=== PATIENT | female | born 1940 ===

== ENCOUNTER 2019-10-03 07:37 | Day surgery (SDC) | payer MEDICARE, MEDICAID, SELFPAY ==
[2019-09-30 18:31] VITALS: BMI 47.4
[2019-10-03] VITALS (20 sets, daily range): BP systolic 130–188; BP diastolic 44–91; PULSE 63–91; RESP 14–20; TEMP 36.1–36.4; O2SAT 92–99
--- NOTE | 2019-10-03 | SCC_ITS ---
Procedure Done: Intramedullary nailing right humerus 58.2 seconds of fluoroscopic guidance, for a cumulative dose of 5.21 mGy, was provided to Dr. Toscano by the radiology department. C-arm images of the RIGHT shoulder were saved for the patient's permanent record. [facility]
--- NOTE | 2019-10-03 08:19 | ANES.PREANES ---
Pre-Anesthetic Assessment Pre-Anesthetic Assessment: Height/Weight: Height 1.56 m Weight 115.666 kg Preop Diagnosis: right proximal humerus fx Proposed Procedure: Operation Date: 10/03/19 09:15 Proposed Procedures p ORIF Proximal Humerus(Right) - Ravinder Toscano MD Social: Comment: 1 ppd x 30 years, quit 30 years ago Home 02 x 2 years Pulmonary: Pulmonary: COPD and Sleep apnea Comments: Home O2 CV/HEM: CV/HEM: Murmur Comments: 02/06 cath + severe Aortic stenosis, distal LM & ostial LAD lesions, mod-severe pulmonary HTN, mild MR, EF 60% s/p AVR 08/03/19 without post op arrest : : UTI Comments: urinary incontinence, hx of dysuria, chronic cystitis GI: Comments: hx of diverticulosis Metabolic: Metabolic: DM, Morbid obesity and Thyroid Comments: rx'd x 20years, normally 150-200, thyroid x 20 years without change Musc/skel: Musc/skel: Fibromyalgia and Lower Back Pain Neuropsych: Neuropsych: Depression Anesthetic Plan: ASA status: III Anesthesia: General Data Anesthesia Cardiac Studies: No Data to Display
[2019-10-03] MEDS: sodium chloride 0.9% 1,000 ML 30 ML IV (08:48)
[2019-10-03 08:49] LABS: Glucose Point of Care 200 mg/dL (70-110)
--- NOTE | 2019-10-03 09:04 | ECG_ITS ---
Measurements Intervals [place] Rate: 71 P: 69 TN: 199 QRS: 16 QRSD: 102 T: 61 QT: 392 QTc: 427 SINUS RHYTHM Compared to ECG 04/13/2019 13:55:20 T-wave abnormality no longer present Electronically Signed On 10-03-2019 19:27:02 UX RESEARCHER by Kieran Castanon M.D. [email or web address]
--- NOTE | 2019-10-03 09:38 | PM.HPUD ---
H&P update H&P Update: DATE OF SURGERY/PROCEDURE: 10/03/19 DATE H&P PERFORMED: 09/13/19 H&P UPDATE INFORMATION: H&P completed within last 30 days and No changes to prior documentation CHANGES TO PREVIOUS DOCUMENTATION: The patient has spoken to doing her oncologist. She is clear for stabilization of her humerus. I have suggested a intramedullary implant. I discussed risk with surgery including bleeding and infection. Discussed unlikely blood vessel or nerve injury. I discussed the complications and dealing with pathologic fracture and the risk for further injury and possible further procedures. She understands all these and agrees to proceed PREOP DIAGNOSIS: Pathologic fracture right humerus PRIMARY INDICATION FOR PROCEDURE: Stabilization pathologic fracture right humerus PLANNED PROCEDURE: Operation Date: 10/03/19 09:15 Proposed Procedures p ORIF Proximal Humerus(Right) - Ravinder Toscano MD Full H&P Medications/Allergies: Current Medications: Current Medications Generic Name Dose Route Start Last Admin Trade Name Freq PRN Reason Stop Dose Admin Sodium Chloride 1,000 mls @ 30 ml s/hr 10/03/19 07:15 10/03/19 08:48 Sodium Chloride 0.9% IV 10/04/19 07:14 30 mls/hr .Q24H BRY Administration
--- NOTE | 2019-10-03 09:50 | ANES.PROC ---
Anesthesia Procedures Procedure/Date: 10/03/19 Nerve Block ^: Nerve Block 1: Main Anesthesia: general anesthesia Time Out Performed: Yes Consent: requested by attending/covering physician, from patient, risks and benefits reviewed, patient agrees to proceed and other Nerve block location: interscalene Anesthesia monitors applied: pulse oximetry and oxygen Nerve block position: supine Amount of anesthesia used (mL): 30 Nerve Stimulator Used?: Yes Interscalene/Femoral BLK: 2 stimuplex 22 g needle used for position and inplane approach Injection: neg aspiration of heme and paresthesia +/- Patient Tolerated Procedure: well and no complications Additional Comments: R&B's of right innerscaleneblock disc'd with Dr. Toscano & patient. Verbal and written consents obtained. US utilized to identify right innerscalene space and nerves. Lido 2% with epi & Rop 0.5% in 1:3 ratio in 5cc increments for 30cc total volume
[2019-10-03] MEDS: fentaNYL 50 mcg/mL INJ 2mL 100 MCG IVP (10:00)
[2019-10-03] MEDS: midazolam 1 mg/mL INJ 5 ML 5 MG IVP (10:02)
[2019-10-03] MEDS: clindamycin 600 MG/50 ML PREMIX 100 MG IV (10:05)
--- NOTE | 2019-10-03 11:43 | SUR.PHASEI ---
1140 PATIENT TO PACU AT THIS TIME FROM OR. RR EVEN AND UNLABORED. PLACED ON SIMPLE MASK AT 8L, SPO2 99%. DRESSING TO RIGHT SHOULDER, CDI, SLING IN PLACE. CAP REFILL INTACT. PULSE PRESENT.
--- NOTE | 2019-10-03 11:43 | PM.OP ---
Operative Report Date of procedure: 10/03/19 Preop Diagnosis: Pathologic fracture right proximal humerus Post-op diagnosis: same Post-op Findings: Same Procedure Done: Intramedullary nailing right humerus Implants: [place] proximal humeral nail right 8 x 220 mm; proximal locking screws measuring 30, 40, and 45 mm Pathology: none sent Surgeon: Ravinder Toscano Anesthesia: general and ISB Estimated blood loss (mL): 100 Complications: None Findings: The patient had a previously described pathologic fracture of her right proximal humerus at the metaphyseal diaphyseal junction. Condition: stable Disposition: PACU Brief History: The patient is a 79-year-old female with chronic right humerus pain. She describes a fall several months ago and markedly increased pain when she simply lifted her arm away from her body. She has been previously cared for by a Dr. Dee in [facility] for metastatic cancer. He cleared her for surgery and she underwent stabilization of her right proximal humerus for pain control Procedure: The patient was taken to the operating room after she was given an interscalene block. She was given 600 mg of clindamycin. He was positioned in the beachchair position with her right arm exposed. She is prepped and draped in the usual fashion. A timeout was performed. A 5 cm long incision was made beginning over the acromion extending distally and laterally. Dissection was carried down to the deltoid musculature which was split providing access to the rotator cuff. The rotator cuff was divided longitudinally. A guidepin was then passed just medial to the insertion of the greater tuberosity down the shaft. Sequential reaming was accomplished up to 9.5 mm. The 8 x 220 mm nail was then placed and passed with minimal difficulty. It was fixed proximally with the 3 proximal locking screws and the and calf. Wound was irrigated with saline. The rotator cuff was closed with 0 Vicryl. The deltoid fascia was closed with 0 Vicryl. The subcutaneous tissues were closed with 2-0 Vicryl. The skin was closed with skin milagros. The patient was placed in a sling, extubated, and taken to recovery in stable condition.
[2019-10-03] MEDS: fentaNYL 50 mcg/mL INJ 2mL IVP ×2 (11:52→11:58)
--- NOTE | 2019-10-03 12:05 | SUR.PHASEI ---
PATIENT CONTINUES TO RATE PAIN 10/10. RESTING COMFORTABLY IN BED. PATIENT NOTED TO BE RESTING WITH EYES CLOSED. RIGHT ARM PLACED ON PILLOWS FOR COMFORT.
[2019-10-03] MEDS: morphine 4 mg/mL SDV 1 mL 2 MG IVP ×3 (12:10→12:30)
[2019-10-03] MEDS: ketorolac 30 mg/mL INJ IVP (12:34)
--- NOTE | 2019-10-03 12:52 | SUR.PHASEI ---
1248 PATIENT TO OPS VIA GURNEY. A/OX3. RR EVEN AND UNLABORED. PWD. DRESSING TO RIGHT SHOULDER CDI, SLING IN PLACE. PULSE PRESENT. CAP REFILL INTACT. PATIENT RATES PAIN /10. FACES 4/10. POSITIONED ON PILLOWS FOR COMFORT.
--- NOTE | 2019-10-04 | XR_ITS ---
WS: [id number] INTRAOPERATIVE TECHNIQUE: 5 Spot fluoroscopic images for intraoperative purposes. FLUOROSCOPY TIME: 58.2 seconds CLINICAL INFORMATION: ORIF Right shoulder COMPARISON: None. FINDINGS: Intraoperative changes intramedullary roosevelt and screw fixation right humerus. Hardware appears in good position. Normal alignment. XR/XR shoulder RT min 2V* [id number] IMPRESSION: Images obtained for intraoperative purposes.
== END 2019-10-03 14:30 | disposition home or self-care (01) ==
PROVIDERS: Family Provider Family Medicine; PCP Family Medicine; Visit Provider Orthopaedic Surgery
PROC: (CPT 23615; principal; 2019-10-03 09:15)
DX: S42.201A Unspecified fracture of upper end of right humerus, initial encounter for closed fracture (principal); W19.XXXA Unspecified fall, initial encounter; J44.9 Chronic obstructive pulmonary disease, unspecified; M79.7 Fibromyalgia; G47.30 Sleep apnea, unspecified; E66.01 Morbid (severe) obesity due to excess calories; E11.9 Type 2 diabetes mellitus without complications; Z87.891 Personal history of nicotine dependence; Z79.84 Long term (current) use of oral hypoglycemic drugs; Z99.81 Dependence on supplemental oxygen
CPT/HCPCS: 24516; 12345; 36416; 73030; 76000; 82962; 93005; 96365; 96374; 96375; C1713; J1580; J1885; J2001; J2250; J2270; J2405; J2704; J2710; J2795; J3010; J3490; J7030

== ENCOUNTER → 2019-10-17 14:20 | Outpatient (BNVA) | payer MEDICARE, MEDICAID, SELFPAY | PROVIDERS: Family Provider Family Medicine; PCP Family Medicine; Visit Provider Orthopaedic Surgery | DX: Z48.89 Encounter for other specified surgical aftercare (principal) | CPT/HCPCS: 73060 ==

== ENCOUNTER 2020-01-28 12:09 | Emergency (ER) | payer MEDICARE, MEDICAID, SELFPAY ==
[2020-01-28] VITALS (7 sets, daily range): BP systolic 130–157; BP diastolic 61–74; PULSE 80–83; RESP 14–20; TEMP 37.1; O2SAT 97–99; BMI 43.4
--- NOTE | 2020-01-28 12:23 | W.ED.GENADLT ---
HPI - General Adult General: Chief complaint: General Medical Stated complaint: PAIN ALL OVER HX OF LUNG CA Time Seen by Provider: 01/28/20 12:14 History of Present Illness: HPI narrative: 79-year-old female with a history of cancer who is on hospice presents emergency room with complaints of pain all over. Reviewing her chart done with patient she has liver cancer she is in and see his oncologist in [place] earlier this year she had a pathologic fracture of her humerus. She comes in today complaining of generalized weakness and hurting all over she has had some falls earlier this year she does states she falls frequently. She denies recent fever sweats chills denies urinary tract symptoms denies respiratory symptoms no vomiting or diarrhea but she has been nauseous she is complaining of some right shoulder pain that is the only pain that she specifies. She does have a friend that helps her she lives at home the friend stops and daily to assist. She was recently [facility] surgery for a medullary roosevelt. Associated symptoms: Reports malaise; Deny chest pain, dyspnea, nausea, rash or vomiting Review of Systems Const: Reports: fatigue and malaise; Denies: fever, chills, body aches or change in appetite ENMT: Denies: throat pain, ear pain, nasal discharge or nasal congestion Card: Denies: chest pain, edema, shortness of breath on exertion or shortness of breath when lying down Resp: Denies: shortness of breath, productive cough or non-productive cough GI: Denies: abdominal pain, nausea, vomiting, vomiting blood, coffee grounds in vomit, diarrhea, constipation, bloating, blood in stool or black tarry stool : Denies: flank pain, difficulty urinating, painful urination, urinary frequency or urinary urgency Musc: Reports: extremity pain (Right shoulder) Skin/Breast: Denies: rash or itching PFSH ED PFSH: Medical History (Updated 01/28/20 @ 15:23 by Azar Garay DO) Hepatic cancer History of COPD Hx of congestive heart failure Hx of diabetes mellitus Hx of primary hypertension Hx of sleep apnea Hx of thyroid disease Proximal humerus fracture Surgical History (Updated 01/28/20 @ 14:28 by Azar Garay DO) Hx of section Hx of cholecystectomy Social History Smoking and tobacco status: former smoker Alcohol intake: never Physical Exam Const: COMMON NORMALS: no apparent distress GENERAL APPEARANCE: cooperative and comfortable ORIENTATION/CONSCIOUSNESS: Yes awake, Yes oriented to person, Yes oriented to place and Yes oriented to time HENMT: COMMON NORMALS: normocephalic, head/scalp atraumatic, hearing grossly normal bilaterally, external ears normal, EAC's normal, TM's normal bilaterally, nasal mucous membranes and turbinates normal, moist oral mucous membranes and oropharynx normal HEAD & SCALP: normocephalic and atraumatic NOSE: nasal mucous membranes and turbinates normal EXTERNAL EAR: Yes external ears normal EXTERNAL AUDITORY CANAL: EAC's normal TYMPANIC MEMBRANE: TM's normal bilaterally Eye: COMMON NORMALS: PERRL, EOMs intact bilaterally, conjunctivae normal and no scleral icterus CONJUNCTIVA: Yes conjunctivae normal PUPIL: Yes PERRL Neck/C-Spine: COMMON NORMALS: full ROM, no lymphadenopathy, supple and no JVD Lymph: LYMPHATIC: no lymphadenopathy noted and no lymphedema noted Resp: COMMON NORMALS: normal respiratory effort, no retractions, no use of accessory muscles and clear to auscultation bilaterally AUSCULTATION: clear to auscultation bilaterally Cardio: COMMON NORMALS: no JVD, regular rate, regular rhythm and no murmurs RATE: regular rate RHYTHM: regular rhythm GI: COMMON NORMALS: soft to palpation and no hepatosplenomegaly AUSCULTATION: Yes normoactive bowel sounds PALPATION: Yes soft, No tender, No guarding and Yes no hepatosplenomegaly Extremity: COMMON NORMALS: normal to inspection, normal capillary refill, no clubbing, cyanosis or edema, no calf tenderness and no pedal edema Neuro: SENSORIUM/ORIENTATION: Yes oriented to person, Yes oriented to place and Yes oriented to time Skin: COMMON NORMALS: no rashes or lesions noted GENERAL SKIN EXAM: no rashes or lesions noted Course Vital Signs: Vital signs: Vital Signs Temperature 98.8 F 01/28/20 12:15 Pulse Rate 83 01/28/20 17:39 Respiratory Rate 20 H 01/28/20 17:39 Blood Pressure 157/74 01/28/20 17:39 Pulse Oximetry 98 01/28/20 17:39 MDM - General Adult MDM Narrative: Medical decision making narrative: Patient has known hepatic cancer with metastasis the only finding today is acute is cystitis we will go ahead and discharge home and treat her for the cystitis with p.o. meds Lab Data: Labs: Lab Results 01/28/20 01/28/20 01/28/20 Range/Units 12:49 12:49 12:49 WBC 14.0 H (4.0-10.0) 10^3/ uL RBC 4.06 L (4.1-5.3) 10^6/u L Hgb 10.9 L (11.5-15.3) g/dL Hct 36.2 L (37.0-47.0) % MCV 89.2 (81-99) fL MCH 26.8 L (28.0-34.0) pg MCHC 30.1 (30.0-36.0) g/dL RDW 21.2 H (12.1-15.1) % Plt Count 185 (130-400) 10^3/c mm MPV 9.7 (7.4-10.4) fL Neut % (Auto) 78.6 % Lymph % (Auto) 7.5 % [place] % (Auto) 11.4 % Eos % (Auto) 0.9 % Baso % (Auto) 0.2 % Neut # (Auto) 11.0 H (1.8-7.7) 10^3/u L Lymph # (Auto) 1.1 (0.8-4.8) 10^3/u L [place] # (Auto) 1.6 H (0.2-0.9) 10^3/u L Eos # (Auto) 0.1 (0.0-0.8) 10^3/u L Baso # (Auto) 0.0 (0.0-0.1) 10^3/u L Nucleated RBC % (a uto) 0.7 % Nucleated RBCs # 0.1 /100WBC PT 17.10 H (10.5-13.3) SECO NDS INR 1.35 H (0.8-1.2) APTT 37.3 H (23.9-36.7) SECO NDS Sodium 134 L (136-145) mmol/L Potassium 4.0 (3.5-5.1) mmol/L Chloride 95 L (98-107) mmol/L Carbon Dioxide 30 H (22-29) mmol/L Anion Gap 13.0 (5-19) BUN 14 (8-23) mg/dL Creatinine 0.7 (0.5-0.9) mg/dL Glucose 139 H (65-115) mg/dL Calculated Osmolal ity 276 L (285-295) mOsm/k g Calcium 8.4 L (8.5-10.5) mg/dL Total Bilirubin 2.8 H (0.15-1.2) mg/dL AST 307 H (0-32) U/L ALT 67 H (0-33) U/L Alkaline Phosphata se 233 H (35-105) IU/L Ammonia (11-51) umol/L Total Protein 6.3 L (6.6-8.7) g/dL Albumin 2.6 L (3.5-5.2) g/dL Globulin 3.7 (1.3-4.6) g/dL Urine Color (Yellow) Urine Appearance (CLEAR) Urine pH (5-7) Ur Specific Gravit y (1.005-1.030) Urine Protein (Negative) Urine Glucose (UA) (Normal) Urine Ketones (Negative) Urine Blood (Negative) Urine Nitrate (Negative) Urine Bilirubin (NEGATIVE) Urine Urobilinogen (Negative) mg/dL Ur Leukocyte Bria ase (Negative) Urine RBC (0-2) /hpf Urine WBC (0-5) /hpf Ur Squamous Epith Cells (0-5) Urine Bacteria (NONE) 01/28/20 01/28/20 Range/Units 12:49 13:07 WBC (4.0-10.0) 10^3/ uL RBC (4.1-5.3) 10^6/u L Hgb (11.5-15.3) g/dL Hct (37.0-47.0) % MCV (81-99) fL MCH (28.0-34.0) pg MCHC (30.0-36.0) g/dL RDW (12.1-15.1) % Plt Count (130-400) 10^3/c mm MPV (7.4-10.4) fL Neut % (Auto) % Lymph % (Auto) % [place] % (Auto) % Eos % (Auto) % Baso % (Auto) % Neut # (Auto) (1.8-7.7) 10^3/u L Lymph # (Auto) (0.8-4.8) 10^3/u L [place] # (Auto) (0.2-0.9) 10^3/u L Eos # (Auto) (0.0-0.8) 10^3/u L Baso # (Auto) (0.0-0.1) 10^3/u L Nucleated RBC % (a uto) % Nucleated RBCs # /100WBC PT (10.5-13.3) SECO NDS INR (0.8-1.2) APTT (23.9-36.7) SECO NDS Sodium (136-145) mmol/L Potassium (3.5-5.1) mmol/L Chloride (98-107) mmol/L Carbon Dioxide (22-29) mmol/L Anion Gap (5-19) BUN (8-23) mg/dL Creatinine (0.5-0.9) mg/dL Glucose (65-115) mg/dL Calculated Osmolal ity (285-295) mOsm/k g Calcium (8.5-10.5) mg/dL Total Bilirubin (0.15-1.2) mg/dL AST (0-32) U/L ALT (0-33) U/L Alkaline Phosphata se (35-105) IU/L Ammonia 39 (11-51) umol/L Total Protein (6.6-8.7) g/dL Albumin (3.5-5.2) g/dL Globulin (1.3-4.6) g/dL Urine Color Yellow (Yellow) Urine Appearance Sl hazy (CLEAR) Urine pH 5 (5-7) Ur Specific Gravit y 1.015 (1.005-1.030) Urine Protein Neg (Negative) Urine Glucose (UA) Norm (Normal) Urine Ketones 1+ H (Negative) Urine Blood Neg (Negative) Urine Nitrate Positive H (Negative) Urine Bilirubin 1+ H (NEGATIVE) Urine Urobilinogen 8 H (Negative) mg/dL Ur Leukocyte Bria ase Negative (Negative) Urine RBC None (0-2) /hpf Urine WBC 5-10 H (0-5) /hpf Ur Squamous Epith Cells Rare (0-5) Urine Bacteria 4+ H (NONE) Discharge Plan Discharge Patient Disposition: Home, Self-Care Clinical Impression: Hepatic cancer, Cystitis Condition: Stable Prescriptions: New Cipro 250 mg tablet 250 mg PO BID 5 Days Qty: 10 RF: 0 No Action furosemide 40 mg tablet 40 mg PO DAILY RF: 0 albuterol sulfate 2.5 mg /3 mL (0.083 %) solution for nebulization See Rx Instructions .ROUTE .COMPLEX RF: 0 trazodone 50 mg tablet 50 mg PO DAILY PRN (Reason: Insomnia) RF: 0 ibuprofen 800 mg tablet 800 mg PO DAILY PRN (Reason: Pain) RF: 0 ondansetron HCl 4 mg tablet 4 mg PO Q8H PRN (Reason: NAUSEA/VOMITING) RF: 0 amlodipine 2.5 mg tablet 2.5 mg PO DAILY RF: 0 clopidogrel 75 mg tablet 75 mg PO DAILY RF: 0 hydrocodone-acetaminophen 10-325 mg tablet 1 tab PO Q4H PRN (Reason: Pain) RF: 0 omeprazole 40 mg capsule,delayed release(DR/EC) 40 mg PO DAILY RF: 0 potassium chloride 20 mEq tablet,ER particles/crystals 20 meq PO DAILY RF: 0 metformin 1,000 mg Tablet 1,000 mg PO BID RF: 0 levothyroxine 150 mcg tablet 150 mcg PO DAILY RF: 0 fluticasone propionate 50 mcg/actuation spray,suspension 1 spray INTRANASAL DAILY RF: 0 loratadine 10 mg tablet 10 mg PO DAILY RF: 0 Incruse Ellipta 62.5 mcg/actuation blister with device 1 inh INHALATION DAILY RF: 0 oxycodone 5 mg capsule 5 mg PO Q4H PRN (Reason: pain) Qty: 40 RF: 0 promethazine 12.5 mg Tablet See Rx Instructions .ROUTE .COMPLEX RF: 0 Vitamin C 1,000 mg Tablet Extended Release 1,000 mg PO Q12H RF: 0 ferrous sulfate 325 mg (65 mg iron) Tablet 325 mg PO DAILY RF: 0 Lenvima 12 mg/day (4 mg x 3) Capsule 12 mg PO DAILY RF: 0 Discharge Orders: Discharge Order (Routine); Ordered 01/28/20 Ordered By: Azar Garay Referrals: Pablo Smith [Primary Care Provider] - Discharge Diet: Advance as tolerated Discharge Activity: Increase activity as tolerated Activity Restrictions/Additional Instructions: Continue current medications follow-up with your regular physician. If develop fever worsening symptoms return Discharge Date/Time: 01/28/20 17:39 Coding Level of Care Code ED Ladle Operator for Chg Fwd Exam Comprehensive
--- NOTE | 2020-01-28 12:44 | XR_ITS ---
WS: [id number] XR shoulder RT min 2V* [id number] REASON FOR EXAM: pain FINDINGS: The shoulder shows mild hypertrophy of the acromioclavicular joint. The clavicle and scapula were normal. The glenoid humeral articulation is normal. There is good callus formation over a remote fracture of the proximal one third of the humerus. XR/XR shoulder RT min 2V* [id number] IMPRESSION: Mild hypertrophy of the acromioclavicular joint.
--- NOTE | 2020-01-28 12:44 | XR_ITS ---
WS: [id number] [place] [id number] REASON FOR EXAM: pain, hx of pathological fx FINDINGS: Intramedullary nail is seen through the humerus extends of the distal one third. Good callu s formation is seen bridging a fracture of the proximal one third of the humerus XR/[place] [id number] IMPRESSION: Good healing of a fracture of the proximal one third of the humerus Intramedullary nailing good position.
[2020-01-28 12:53] LABS: Basophils % 0.2 %; Eosinophils # 0.1 10^3/uL (0.0-0.8); Eosinophils % 0.9 %; Hematocrit 36.2 % (37.0-47.0); Hemoglobin 10.9 g/dL (11.5-15.3); Lymphocytes # 1.1 10^3/uL (0.8-4.8); Lymphocytes % 7.5 %; Mean Corpuscular HGB Conc 30.1 g/dL (30.0-36.0); Mean Corpuscular Hemoglobin 26.8 pg (28.0-34.0); Mean Corpuscular Volume 89.2 fL (81-99); Mean Platelet Volume 9.7 fL (7.4-10.4); Monocytes # 1.6 10^3/uL (0.2-0.9); Monocytes % 11.4 %; Neutrophils % 78.6 %; Nucleated Red Blood Cells # 0.1 /100WBC; Nucleated Red Blood Cells % 0.7 %; Platelet Count 185 10^3/cmm (130-400); Red Blood Count 4.06 10^6/uL (4.1-5.3); Red Cell Distribution Width 21.2 % (12.1-15.1)
[2020-01-28 13:02] LABS: INR 1.35 (0.8-1.2)
[2020-01-28 13:03] LABS: Partial Thromboplastin Time 37.3 SECONDS (23.9-36.7)
[2020-01-28 13:11] LABS: Alanine Aminotransferase 67 U/L (0-33); Albumin Level 2.6 g/dL (3.5-5.2); Alkaline Phosphatase 233 IU/L (35-105); Aspartate Amino Transferase 307 U/L (0-32); Blood Urea Nitrogen 14 mg/dL (8-23); Calcium 8.4 mg/dL (8.5-10.5); Carbon Dioxide 30 mmol/L (22-29); Chloride 95 mmol/L (98-107); Globulin 3.7 g/dL (1.3-4.6); Glucose 139 mg/dL (65-115); Osmolality Calculated 276 mOsm/kg (285-295); Sodium 134 mmol/L (136-145); Total Bilirubin 2.8 mg/dL (0.15-1.2); Total Protein 6.3 g/dL (6.6-8.7)
[2020-01-28 13:14] LABS: Ammonia 39 umol/L (11-51)
[2020-01-28 13:19] LABS: Add Urine Microscopic? YES; Bilirubin Urine 1+ (NEGATIVE); Blood Urine Neg (Negative); Glucose Urine UA Norm (Normal); Ketones Urine 1+ (Negative); Leukocyte Esterase Urine Negative (Negative); Nitrate Urine Positive (Negative); Protein Urine Neg (Negative); Specific Gravity, Urine 1.015 (1.005-1.030); Urine Appearance SL Hazy (CLEAR); Urine Color Yellow (Yellow); Urobilinogen Urine 8 mg/dL (Negative); pH Urine 5 (5-7)
[2020-01-28 13:30] LABS: Add Urine Culture? Yes; Bacteria Urine 4+; Squamous Epithelial Cell Urine RARE (0-5)
--- NOTE | 2020-01-28 14:45 | XR_ITS ---
WS: [id number] XR hip RT 1V wo/w pel [id number] REASON FOR EXAM: pain FINDINGS: Degenerate changes of the acetabular femoral head articulation. The ilium, ischium, and pubis were normal with no fractures seen. XR/XR hip RT 1V wo/w pel [id number] IMPRESSION: Mild osteoarthritic changes of the right hip.
[2020-01-28] MEDS: ondansetron 2 mg/ML SDV 2 mL 4 MG IVP (15:17)
[2020-01-28] MEDS: morphine 4 mg/mL SDV 1 mL IVP (15:17)
[2020-01-28] MEDS: cefTRIAXone 1,000 MG in sodium chloride 0.9% (plus) 50 ML 100 MG IV (15:22)
== END 2020-01-28 17:39 | disposition home or self-care (01) ==
PROVIDERS: Emergency Provider Family Medicine; PCP Family Medicine
DX: C22.8 Malignant neoplasm of liver, primary, unspecified as to type (principal); N30.90 Cystitis, unspecified without hematuria; Z79.02 Long term (current) use of antithrombotics/antiplatelets; Z79.84 Long term (current) use of oral hypoglycemic drugs; J44.9 Chronic obstructive pulmonary disease, unspecified; I11.0 Hypertensive heart disease with heart failure; I50.9 Heart failure, unspecified; E11.9 Type 2 diabetes mellitus without complications; Z87.891 Personal history of nicotine dependence
CPT/HCPCS: 12345; 36415; 51701; 73030; 73060; 73501; 80053; 81001; 82140; 85025; 85610; 85730; 87040; 87077; 87086; 87186; 96365; 96375; 99283; 99284; J0696; J2270; J2405